=== PATIENT | female | born 1960 | race Caucasian/White ===

== ENCOUNTER 2021-07-24 18:30 | Inpatient (IN) | payer MEDICAID ==
[~2021-07-24] VITALS: Ht 154.9 cm; Wt 75.0 kg
[2021-07-24 19:27] LABS: BASOPHILS % 0.5 % (0.0-2.0); EOSINOPHILS % 2.1 % (0.0-5.0); HEMATOCRIT. 43.5 % (36.0-48.0); HEMOGLOBIN. 15.1 g/dL (12.0-16.0); LYMPHOCYTES % 40.7 % (20.0-50.0); MEAN CORPUSCULAR HEMOGLOBIN 30.8 pg (28.0-32.0); MEAN CORPUSCULAR VOLUME 88.5 fL (81.0-99.0); MEAN PLATELET VOLUME 9.1 fl (7.4-10.4); NEUTROPHILS % 49.7 % (40.0-76.0); PLATELET 174 x1000/uL (130-400); RED BLOOD CELL COUNT 4.91 mill/uL (4.2-5.4); RED CELL DISTRIBUTION WIDTH 12.7 % (11.6-14.6)
[2021-07-24 19:39] LABS: CHLORIDE 106 mEq/L (98-107)
[2021-07-24 19:43] LABS: ETHANOL BLOOD < 10 mg/dL
[2021-07-24] MEDS ORDERED: IOHEXOL-350 100 ML BOTTLE ONE (19:50)
[2021-07-24] MEDS ORDERED: NITROGLYCERIN 0.4MG TABLET SL SL PRN (22:15)
[2021-07-24] MEDS ORDERED: CLONIDINE 0.1MG TABLET PO PRN (22:15)
[2021-07-24] MEDS ORDERED: DOCUSATE SODIUM 100MG CAPSULE PO PRN (22:15)
[2021-07-24] MEDS ORDERED: MAGNESIUM/ALUMINUM HYDROXIDE/SIMETHICONE 30ML UDC PO PRN (22:15)
[2021-07-24] MEDS ORDERED: GUAIFENESIN 200MG/10ML SUGAR FREE UDC PO PRN (22:15)
[2021-07-24] MEDS ORDERED: KETOROLAC 15MG/ML VIAL IV PRN (22:15)
[2021-07-24] MEDS ORDERED: ACETAMINOPHEN 325MG TABLET PO PRN ×2 (22:15)
[2021-07-24] MEDS ORDERED: ONDANSETRON HCL 4MG/2ML INJ IV PRN (22:15)
[2021-07-24] MEDS ORDERED: IPRATROPIUM/ALBUTEROL 0.5-3(2.5)MG/3ML NEB NEB PRN (22:15)
[2021-07-24] MEDS ORDERED: ZOLPIDEM TARTRATE 5MG TABLET PO PRN (22:15)
[2021-07-24 22:50] LABS: T4 FREE 1.08 ng/dL (0.76-1.46)
[2021-07-24 23:04] LABS: FOLIC ACID (FOLATE) SERUM 10.3 ng/mL (>5.38)
[2021-07-24] MEDS: ENOXAPARIN 40MG/0.4ML SYR SUBCUT SCH (23:10)
[2021-07-24 23:48] LABS: CLARITY URINE CLEAR (CLEAR); COLOR URINE YELLOW (YELLOW); KETONES URINE NEGATIVE (NEGATIVE); LEUKOCYTE ESTERASE URINE NEGATIVE (NEGATIVE); NITRITE URINE NEGATIVE (NEGATIVE); OCCULT BLOOD URINE NEGATIVE (NEGATIVE); PROTEIN URINE NEGATIVE (NEGATIVE); SPECIFIC GRAVITY URINE 1.042 (1.005-1.030); UROBILINOGEN URINE 0.2 E.U./dL (0.2-1.0)
[2021-07-25] LABS: *BENZODIAZEPINES SCREEN URINE NEGATIVE (NEGATIVE); *COCAINE SCREEN URINE NEGATIVE (NEGATIVE); CANNABINOID URINE SCREEN NEGATIVE (NEGATIVE); OPIATES URINE SCREEN NEGATIVE (NEGATIVE); PHENCYCLIDINE URINE SCREEN NEGATIVE (NEGATIVE)
[2021-07-25 00:01] LABS: *AMPHETAMINES SCREEN URINE NEGATIVE (NEGATIVE); *BARBITURATES SCREEN URINE NEGATIVE (NEGATIVE); METHADONE URINE SCREEN NEGATIVE (NEGATIVE)
[2021-07-25 03:59] LABS: BASOPHILS % 0.7 % (0.0-2.0); EOSINOPHILS % 3.4 % (0.0-5.0); HEMATOCRIT. 43.4 % (36.0-48.0); HEMOGLOBIN. 15.1 g/dL (12.0-16.0); LYMPHOCYTES % 48.9 % (20.0-50.0); MEAN CORPUSCULAR VOLUME 89.1 fL (81.0-99.0); MEAN PLATELET VOLUME 8.4 fl (7.4-10.4); MONOCYTES % 6.6 % (2.0-8.0); NEUTROPHILS % 40.4 % (40.0-76.0); PLATELET 150 x1000/uL (130-400); RED BLOOD CELL COUNT 4.86 mill/uL (4.2-5.4)
[2021-07-25 04:10] LABS: CHLORIDE 110 mEq/L (98-107)
[2021-07-25 04:17] LABS: PHOSPHORUS 3.8 mg/dL (2.5-4.9)
[2021-07-25 04:23] LABS: CREATINE KINASE 107 IU/L (26-192)
[2021-07-25 04:24] LABS: CREATINE KINASE MB FRACTION 1.6 ng/mL (0.5-3.6)
[2021-07-25 10:00] VITALS: BP 132/61
[2021-07-25] MEDS: FAMOTIDINE 20MG TABLET PO SCH ×2 (11:06→21:35)
[2021-07-25] MEDS: ASPIRIN 325MG EC TABLET PO SCH (11:06)
[2021-07-25 12:00] VITALS: BP 111/49
[2021-07-25 16:00] VITALS: BP 111/47
[2021-07-25 16:49] LABS: CREATINE KINASE 85 IU/L (26-192)
[2021-07-25 16:50] LABS: CREATINE KINASE MB FRACTION < 1.0 ng/mL (0.5-3.6)
[2021-07-25 20:00] VITALS: BP 108/75
[2021-07-25] MEDS: ENOXAPARIN 40MG/0.4ML SYR SUBCUT SCH (21:35)
[2021-07-26] VITALS: BP 100/50
[2021-07-26 04:00] VITALS: BP 98/58
[2021-07-26 08:00] VITALS: BP 118/67
[2021-07-26] MEDS: ASPIRIN 325MG EC TABLET PO SCH (08:12)
[2021-07-26] MEDS: FAMOTIDINE 20MG TABLET PO SCH (08:12)
== END 2021-07-26 10:45 | disposition home or self-care (01) | DRG 47 ==
LOC: ER 18:30 → MICUSO 22:06 → EDBEDREQSVC 22:34 → EDBEDREQTM 22:34 → EDBEDREQ 22:34 → 8WST 07-25 09:23
PROVIDERS: ADMIT Internal Medicine; ATTEND Internal Medicine
DX: G45.9 Transient cerebral ischemic attack, unspecified (principal); E66.9 Obesity, unspecified; H11.31 Conjunctival hemorrhage, right eye; R74.01 Elevation of levels of liver transaminase levels; E78.00 Pure hypercholesterolemia, unspecified; Z90.49 Acquired absence of other specified parts of digestive tract; Z68.31 Body mass index [BMI] 31.0-31.9, adult; Z71.3 Dietary counseling and surveillance
CPT/HCPCS: 36415; 70496; 70498; 70551; 71045; 80053; 80061; 80305; 80320; 81003; 82550; 82553; 82607; 82746; 82962; 83036; 83540; 83550; 83735; 84100; 84439; 84443; 84484; 85025; 93005; 93306; 93970; 99285; J1650; Q9967; G0480